=== PATIENT | female | born 1960 | race Caucasian/White ===

== ENCOUNTER 2023-10-22 08:02 | Outpatient (CLI) | payer BC, SELFPAY ==
[2023-10-22 09:30] LABS: Free T3 3.13 pg/mL (2.18-3.98); Free T4 Free Thyroxine 1.49 ng/dL (0.76-1.46)
[2023-10-22 09:33] LABS: Thyroid Stimulating Hormone < 0.01 uIU/mL (0.36-3.74)
== END 2023-10-22 08:03 | disposition home or self-care (01) ==
PROVIDERS: PCP Family Medicine; Visit Provider Family Medicine
DX: E03.9 Hypothyroidism, unspecified (principal); Z85.850 Personal history of malignant neoplasm of thyroid
CPT/HCPCS: 36415; 84439; 84443; 84481; 86800